=== PATIENT | male | born 1985 | race Caucasian/White ===

== ENCOUNTER 2022-10-07 04:20 | Emergency (ER) | payer OTHER ==
[2022-10-07 04:28] VITALS: BP 130/89; PULSE 88; RESP 18; TEMP 97.7; BMI 32.3
== END 2022-10-07 05:11 | disposition home or self-care (01) ==
LOC: JER 04:20
DX: S39.012A Strain of muscle, fascia and tendon of lower back, initial encounter (principal); M54.50 Low back pain, unspecified
CPT/HCPCS: 99282-25

== ENCOUNTER 2023-12-06 08:42 | Emergency (ER) | payer OTHER ==
[2023-12-06 08:51] VITALS: BP 129/90; PULSE 77; RESP 18; TEMP 97.8; BMI 32.3
[2023-12-06] MEDS ORDERED: IBUPROFEN 400 MG TABLET (FP) PO ONE (08:54)
[2023-12-06] MEDS ORDERED: ACETAMINOPHEN 500 MG TABLET (FP) ONE (08:54)
[2023-12-06] MEDS: ACETAMINOPHEN 500 MG TABLET (FP) PO ONE (08:57)
[2023-12-06] MEDS: IBUPROFEN 400 MG TABLET (FP) PO ONE (08:57)
== END 2023-12-06 09:41 | disposition home or self-care (01) ==
LOC: JERFT 08:42
DX: S69.91XA Unspecified injury of right wrist, hand and finger(s), initial encounter (principal); W27.8XXA Contact with other nonpowered hand tool, initial encounter
CPT/HCPCS: 73130-TC-RT-FY; 99283-25

== ENCOUNTER 2024-05-02 19:02 | Emergency (ER) | payer OTHER ==
[2024-05-02 19:25] VITALS: BP 146/86; PULSE 102; RESP 18; TEMP 98.7; BMI 32.3
[2024-05-02] MEDS ORDERED: KETOROLAC TROMETHAMINE 15 MG/ML VIAL ONE (20:16)
[2024-05-02] MEDS ORDERED: LIDOCAINE 5% TOPICAL PATCH ONE (20:16)
[2024-05-02] MEDS: KETOROLAC TROMETHAMINE 15 MG/ML VIAL IM ONE (21:29)
[2024-05-02] MEDS: LIDOCAINE 5% TOPICAL PATCH TP ONE (21:29)
[2024-05-02] MEDS ORDERED: LIDOCAINE PATCH REMOVAL MC SCH (22:00)
== END 2024-05-02 21:29 | disposition home or self-care (01) ==
LOC: JERFT 19:02 → JER 19:02 → JERFT 21:29
PROC: 3E0133Z Introduction of Anti-inflammatory into Subcutaneous Tissue, Percutaneous Approach (ICD-10-PCS; principal; 2024-05-02)
DX: M79.10 Myalgia, unspecified site (principal)
CPT/HCPCS: 73610-TC-RT-FY; 73630-TC-RT-FY; 99284-25